=== PATIENT | female | born 1975 | race Caucasian/White ===

== ENCOUNTER 2016-05-28 14:43 | Emergency (ER) | payer MEDICARE ==
[~2016-05-28] VITALS: Ht 154.9 cm; Wt 54.4 kg
[~2016-05-28 14:43] MED LIST: BACTRIM DS 8001 TA1 PO; CYMBALTA60 M1 PO; FLEXERIL10 M1 PO; GABAPENTIN100 MG PO; HYDROCORT 0.5%30 G1 TP; LAMOTRIGINE100 M1 PO; METFORMIN500 MG PO; NAPROSYN500 M1 PO; PHENERGAN W/CO473 M1 PO; PROPRANOLOL HCL10 MG PO; PROTONIX 40MG T40 MG PO; TRAZODONE 50MG50 MG PO; Tramadol HCl50 MG PO; WELLBUTRIN 100100 M1 PO; ZANAFLEX2 M1 PO; ZOLOFT100 MG PO
[2016-05-28] MEDS ORDERED: KLONOPIN 0.5MG0.5 MG NG (14:50)
[2016-05-28] MEDS ORDERED: LISINOPRIL 20MG20 MG PO (14:50)
--- NOTE | 2016-05-28 15:46 | RADIOLOGY REPORT PS360 ---
WRIST-3 VIEWS-RT HISTORY: Pain following injury FALL ORDERING PHYSICIAN: Truman Berry MD PATIENT AGE: 40 years COMPARISON: None FINDINGS: No fracture or dislocation. No lytic or blastic change. There is normal mineralization.. The joint spaces are well-preserved. No significant degenerative/arthritic changes. No erosive changes evident.. There is an ulnar minus variant. IMPRESSION: No acute finding
--- NOTE | 2016-05-28 15:46 | RADIOLOGY REPORT PS360 ---
HUMERUS-RT HISTORY: Pain following injury pain, s/p fall ORDERING PHYSICIAN: Truman Berry MD PATIENT AGE: 40 years COMPARISON: None FINDINGS: No fracture or dislocation. No lytic or blastic change. There is normal mineralization. The joint spaces are well-preserved. No significant degenerative/arthritic changes. No erosive changes evident. IMPRESSION: Negative, no acute finding
--- NOTE | 2016-05-28 16:07 | RADIOLOGY REPORT PS360 ---
FOREARM-RT HISTORY: Pain following injury pain, s/p fall ORDERING PHYSICIAN: Truman Berry MD PATIENT AGE: 40 years COMPARISON: None FINDINGS: No obvious fracture, dislocation, lytic change or blastic change. Normal mineralization. Unremarkable soft tissues IMPRESSION: Negative forearm
--- NOTE | 2016-05-28 16:13 | RADIOLOGY REPORT PS360 ---
CT HEAD W/O CONTRAST HISTORY: Dizziness, headache, loss of consciousness after a fall and head injury HEAD INJURY W/LOC ORDERING PHYSICIAN: Truman Berry MD PATIENT AGE: 40 years COMPARISON: 12/02/2013 TECHNIQUE: Axial images obtained without contrast. Brain and bone windows reviewed. FINDINGS: No midline shift or mass effect is evident. There is generalized atrophy. 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 Small amount of subarachnoid hemorrhage is present in the right frontoparietal junction. No epidural or subdural hematoma evident. No calvarial fracture. Mild mucosal thickening involves the ethmoid and left sphenoid sinus with a small air-fluid level in the sphenoid sinus on the left. IMPRESSION: 1. Small area of acute subarachnoid hemorrhage in the right parietal region. 2. No midline shift or mass effect. 3. Atrophy. Critical result called to Dr. Laughlin on 05/28/2016 4:09 PM.
--- NOTE | 2016-05-28 16:26 | Emergency Room Report ---
History of Present Illness Time Seen by [id number] Presenting Problem in Triage Pt arrived:Walked Presenting Problem:PT REPORTS FELL WHILE GETTING IN THE SHOWER, C/O R WRIST PAIN R/T FALL AND SMALL LACERATION INSIDE R EAR. 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 N Clinical Suspician of Infection? N Mental Status: 1 - Regular (Normal Baseline) Sepsis Risk:Low Sepsis Risk Have you (or family members/close friends) recently traveled outside the [place]? N If Yes, where/when: Have you had exposure to infectious disease within the past month? N TB? Other? Specify: Source patient, RN notes reviewed, family, RN/MD, EMS notes reviewed Exam Limitations no limitations Comment This is a 40-year-old diabetic lady brought in by EMS after sustaining a head injury, while taking a shower just prior to arrival. According to the family she slipped on the wet floor, fell and hit her head and briefly passed out. Family denies any seizure like activity, any nausea, vomiting. Patient also complains with right ear pain where she has a small earlobe laceration. Family stated to that she appears slightly confused and more slow than usual. She is also complaining with RIGHT wrist, RIGHT forearm, RIGHT arm and RIGHT shoulder pain. She's been diagnosed with diabetes approximately 9 years ago. ALLERGIES Coded Allergies: tramadol (Intermediate, LIGHTHEADED 06/06/15) Home Medications Reported Medications Metformin HCL (Metformin) 500 MG PO TID Pantoprazole Sodium (Protonix 40MG TAB) 40 MG PO DAILY TIZANIDINE HCL (Zanaflex) 4 MG PO Q8P Bupropion Hcl (Wellbutrin 100MG) 100 MG PO BID TRAZODONE HCL (Trazodone HCl) 100 MG PO QHS Lamotrigine 100 MG PO BEDTIME LISINOPRIL (Lisinopril) 20 MG PO DAILY Clonazepam (Klonopin 0.5MG) 0.5 MG NG BID DULOXETINE HCL (Cymbalta) 60 MG PO DAILY History Medical History General CAD? No Angina: No MO: No Hypertension? Yes Hyperlipidemia? Yes CHF? No COPD? No Asthma? No Anemia? No Hernia? Yes Thyroid Problems? No Hypothyroidism? No CVA? No Seizures? No Diabetes? Yes Insulin Dependent: No Insulin Pump: No Home FSBS? Yes End Stage Renal Disease? No UTI? No Stones? No GB Disease: No Nephritic Syndrome? No Asplenia? No Hepatitis? No Sickle Cell Disease? No Arthritis? No Cataracts? No Glaucoma? No MRSA? No TB? No Cancer? Yes Site: OVARIAN More? 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 CAM[employer] MECH[employer]IC Hx LMP N/A Social History Smoking Hx Smoker: Never Smoker Tobacco: No Alcohol Alcohol: No Review of Systems All Other Systems Reviewed and Negative Musculoskeletal joint pain (RIGHT wrist, FA, arm) Skin lesions (laceration right ear) Psychiatric/Neurological headache Physical Exam Vital Signs Vital Signs Date Time Temp Pulse Resp B/P Pulse O2 O2 Flow FiO2 Ox Delivery Rate 05/28 1600 60 18 115/78 98 05/28 1444 98.9 66 18 110/60 100 General Appearance normal appearance, WD/WN, mild distress Eye Exam - bilateral eye normal exam, bilateral eye PERRL, bilateral eye EOMI Ear, Nose, Throat hearing grossly normal, normal ENT inspection Neck normal inspection, non-tender, supple, full range of motion Respiratory Status Yes: trachea midline, chest symmetrical, non tender chest. No: respiratory distress. Lung Sounds bilateral: normal breath sounds, lungs clear. Cardiovascular normal exam, regular rate/rhythm, no peripheral edema, no gallop, no JVD, no murmur, no rub, normal peripheral pulses Peripheral Pulses Pulses normal Yes Gastrointestinal normal bowel sounds, normal exam, non tender, soft, no organomegaly Extremities RIGHT shoulder, RIGHT humerus, RIGHT elbow, RIGHT forearm, RIGHT wrist and the palpation, with no soft tissue deformity, no bony deformity, no anatomical box tenderness. Neurologic alert, barrel cap setter II-XII nml as tested, normal exam, oriented x2, lethargic Glascow Coma Scale Glascow Coma Scale Response Value EYE response: 4 Spontaneously 4 MOTOR response: 6 OBEYS 6 VERBAL response: 4 Disoriented & Converses 4 Total 14 Mental status normal mood/affect Skin intact, normal color, warm/dry Medical Decision Making LABS/Meds/Orders Pt receiving controlled substance in ED? No Comment 04:19pm-was called by the radiologist, Dr. Chava Amaral, to be informed of patient 's RIGHT parietal subarachnoid hemorrhage found on the noncontrast CT scan brain without contrast 04:20pm-patient reexamined, she still complained with headache and nausea. 04:23pm-call initiated with [facility] regarding patient's transfer to [facility] trauma service. 04:38pm-cause reconnected with Ritika, transfer table operator, advised of patient's mechanism of injury, physical examination, radiology findings were all radiologist, as well as GCS score and patient's ED course. The school coordinator, Ritika, the patient on behalf of Dr. Charles. Patient will be transferred to [facility] via ambulance. Results/Orders Laboratory Tests 05/28/16 1628: POC Glucose 217 H Current Medication Orders Sig/Telly Start time Last Medication Dose Route Stop Time Status Admin Lidocaine HCl 0 .STK-MED ONE 05/28 1516 DC .ROUTE Tetanus/Diphtheria 0.5 ML ONCE ONE 05/28 1515 DC Toxoids Adsorbed IM 05/28 1516 Orders Procedure Date/time Status DIET-NOTHING BY MOUTH 05/28 D Active FINGERSTICK BLOOD SUGAR 05/[address] HEAD REQ 05/28 1502 Complete XRAY/CT/US XRAY/CT/US [address] interpretation by discussed w/radiologist (brunilda Amaral) CT Results no fracture seen Comment Small RIGHT parietal lobe subarachnoid hemorrhage per Dr. Amaral XRAY/CT/US 2 XRAY RIGHT wrist, RIGHT forearm, RIGHT humerus - negative Procedures Laceration/Wound Repair Laceration/Wound Repair Risks/benefits discussed with pt/guardian? Yes Tetanus status not up to date Wound Location ear (right) Wound Length (cm) 3 Wound's Depth, Shape sucutaneous tissue Wound Explored no FB identified Risk of retained FB explained to pt/guardian? Yes Irrigated w/ Saline (ccs) 20 Wound Prep Betadine, Saline Anesthesia 1% Lidocaine, Local Volume Anesthetic (ccs) 20 Wound Debrided none Wound Repaired With sutures (4.0 nylon) Suture Size/Type 4:0, Proline Layer Closure No Total Number Sutures 8 Sterile Dressing Applied Yes Departure Departure Time of Disposition 1624 Disposition DC/XFER from ER to [facility] Clinical Impression Primary Impression: Subarachnoid hemorrhage following injury Qualifiers: : : Qualified Code: S06.6X9A - Traumatic subarachnoid hemorrhage with loss of consciousness of unspecified duration, initial encounter Secondary Impressions: Fall Qualifiers: Encounter type: initial encounter Qualified Code: W19.XXXA - Unspecified fall, initial encounter Head injury due to trauma Qualifiers: Encounter type: initial encounter Qualified Code: S09.90XA - Unspecified injury of head, initial encounter Laceration of right ear region Condition STABLE ED Critical Care Critical Care Yes Time spent 30-74 min Vital system(s) involved: Central Nervous System I was present at bedside for Coordinating pt's care, Interpreting EKGs/Strips , During my initial exam, Reviewing lab results, Reviewing old records, Discussing pt condition, For re-examinations, Examining radiographs at [id number]
--- NOTE | 2016-05-28 16:26 | Emergency Room Report ---
History of Present Illness Time Seen by [id number] Presenting Problem in Triage Pt arrived:Walked Presenting Problem:PT REPORTS FELL WHILE GETTING IN THE SHOWER, C/O R WRIST PAIN R/T FALL AND SMALL LACERATION INSIDE R EAR. 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 N Clinical Suspician of Infection? N Mental Status: 1 - Regular (Normal Baseline) Sepsis Risk:Low Sepsis Risk Have you (or family members/close friends) recently traveled outside the [place]? N If Yes, where/when: Have you had exposure to infectious disease within the past month? N TB? Other? Specify: Source patient, RN notes reviewed, family, RN/MD, EMS notes reviewed Exam Limitations no limitations Comment This is a 40-year-old diabetic lady brought in by EMS after sustaining a head injury, while taking a shower just prior to arrival. According to the family she slipped on the wet floor, fell and hit her head and briefly passed out. Family denies any seizure like activity, any nausea, vomiting. Patient also complains with right ear pain where she has a small earlobe laceration. Family stated to that she appears slightly confused and more slow than usual. She is also complaining with RIGHT wrist, RIGHT forearm, RIGHT arm and RIGHT shoulder pain. She's been diagnosed with diabetes approximately 9 years ago. ALLERGIES Coded Allergies: tramadol (Intermediate, LIGHTHEADED 06/06/15) Home Medications Reported Medications Metformin HCL (Metformin) 500 MG PO TID Pantoprazole Sodium (Protonix 40MG TAB) 40 MG PO DAILY TIZANIDINE HCL (Zanaflex) 4 MG PO Q8P Bupropion Hcl (Wellbutrin 100MG) 100 MG PO BID TRAZODONE HCL (Trazodone HCl) 100 MG PO QHS Lamotrigine 100 MG PO BEDTIME LISINOPRIL (Lisinopril) 20 MG PO DAILY Clonazepam (Klonopin 0.5MG) 0.5 MG NG BID DULOXETINE HCL (Cymbalta) 60 MG PO DAILY History Medical History General CAD? No Angina: No ND: No Hypertension? Yes Hyperlipidemia? Yes CHF? No COPD? No Asthma? No Anemia? No Hernia? Yes Thyroid Problems? No Hypothyroidism? No CVA? No Seizures? No Diabetes? Yes Insulin Dependent: No Insulin Pump: No Home FSBS? Yes End Stage Renal Disease? No UTI? No Stones? No GB Disease: No Nephritic Syndrome? No Asplenia? No Hepatitis? No Sickle Cell Disease? No Arthritis? No Cataracts? No Glaucoma? No MRSA? No TB? No Cancer? Yes Site: OVARIAN More? 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 Social History Smoking Hx Smoker: Never Smoker Tobacco: No Alcohol Alcohol: No Review of Systems All Other Systems Reviewed and Negative Musculoskeletal joint pain (RIGHT wrist, FA, arm) Skin lesions (laceration right ear) Psychiatric/Neurological headache Physical Exam Vital Signs Vital Signs Date Time Temp Pulse Resp B/P Pulse O2 O2 Flow FiO2 Ox Delivery Rate 05/28 1600 60 18 115/78 98 05/28 1444 98.9 66 18 110/60 100 General Appearance normal appearance, WD/WN, mild distress Eye Exam - bilateral eye normal exam, bilateral eye PERRL, bilateral eye EOMI Ear, Nose, Throat hearing grossly normal, normal ENT inspection Neck normal inspection, non-tender, supple, full range of motion Respiratory Status Yes: trachea midline, chest symmetrical, non tender chest. No: respiratory distress. Lung Sounds bilateral: normal breath sounds, lungs clear. Cardiovascular normal exam, regular rate/rhythm, no peripheral edema, no gallop, no JVD, no murmur, no rub, normal peripheral pulses Peripheral Pulses Pulses normal Yes Gastrointestinal normal bowel sounds, normal exam, non tender, soft, no organomegaly Extremities RIGHT shoulder, RIGHT humerus, RIGHT elbow, RIGHT forearm, RIGHT wrist and the palpation, with no soft tissue deformity, no bony deformity, no anatomical box tenderness. Neurologic alert, smoke eater II-XII nml as tested, normal exam, oriented x2, lethargic Glascow Coma Scale Glascow Coma Scale Response Value EYE response: 4 Spontaneously 4 MOTOR response: 6 OBEYS 6 VERBAL response: 4 Disoriented & Converses 4 Total 14 Mental status normal mood/affect Skin intact, normal color, warm/dry Medical Decision Making LABS/Meds/Orders Pt receiving controlled substance in ED? No Comment 04:19pm-was called by the radiologist, Dr. Chava Amaral, to be informed of patient 's RIGHT parietal subarachnoid hemorrhage found on the noncontrast CT scan brain without contrast 04:20pm-patient reexamined, she still complained with headache and nausea. 04:23pm-call initiated with [facility] regarding patient's transfer to [facility] trauma service. 04:38pm-cause reconnected with Ritika, coordinator volunteer services, advised of patient's mechanism of injury, physical examination, radiology findings were all radiologist, as well as GCS score and patient's ED course. The conference center coordinator, Ritika, the patient on behalf of Dr. Charles. Patient will be transferred to [facility] via ambulance. Results/Orders Laboratory Tests 05/28/16 1628: POC Glucose 217 H Current Medication Orders Sig/Telly Start time Last Medication Dose Route Stop Time Status Admin Lidocaine HCl 0 .STK-MED ONE 05/28 1516 DC .ROUTE Tetanus/Diphtheria 0.5 ML ONCE ONE 05/28 1515 DC Toxoids Adsorbed IM 05/28 1516 Orders Procedure Date/time Status DIET-NOTHING BY MOUTH 05/28 D Active FINGERSTICK BLOOD SUGAR 05/[address] HEAD REQ 05/28 1502 Complete XRAY/CT/US XRAY/CT/US [address] interpretation by discussed w/radiologist (brunilda Amaral) CT Results no fracture seen Comment Small RIGHT parietal lobe subarachnoid hemorrhage per Dr. Amaral XRAY/CT/US 2 XRAY RIGHT wrist, RIGHT forearm, RIGHT humerus - negative Procedures Laceration/Wound Repair Laceration/Wound Repair Risks/benefits discussed with pt/guardian? Yes Tetanus status not up to date Wound Location ear (right) Wound Length (cm) 3 Wound's Depth, Shape sucutaneous tissue Wound Explored no FB identified Risk of retained FB explained to pt/guardian? Yes Irrigated w/ Saline (ccs) 20 Wound Prep Betadine, Saline Anesthesia 1% Lidocaine, Local Volume Anesthetic (ccs) 20 Wound Debrided none Wound Repaired With sutures (4.0 nylon) Suture Size/Type 4:0, Proline Layer Closure No Total Number Sutures 8 Sterile Dressing Applied Yes Departure Departure Time of Disposition 1624 Disposition DC/XFER from ER to [facility] Clinical Impression Primary Impression: Subarachnoid hemorrhage following injury Qualifiers: : : Qualified Code: S06.6X9A - Traumatic subarachnoid hemorrhage with loss of consciousness of unspecified duration, initial encounter Secondary Impressions: Fall Qualifiers: Encounter type: initial encounter Qualified Code: W19.XXXA - Unspecified fall, initial encounter Head injury due to trauma Qualifiers: Encounter type: initial encounter Qualified Code: S09.90XA - Unspecified injury of head, initial encounter Laceration of right ear region Condition STABLE ED Critical Care Critical Care Yes Time spent 30-74 min Vital system(s) involved: Central Nervous System I was present at bedside for Coordinating pt's care, Interpreting EKGs/Strips , During my initial exam, Reviewing lab results, Reviewing old records, Discussing pt condition, For re-examinations, Examining radiographs at 1103
[2016-05-28 16:53] VITALS: BP 115/54
== END 2016-05-28 16:54 | disposition short-term general hospital (02) ==
LOC: ER 14:43
PROC: 0HQ2XZZ Repair Right Ear Skin, External Approach (ICD-10-PCS; principal; 2016-05-28)
DX: S06.6X9A Traumatic subarachnoid hemorrhage with loss of consciousness of unspecified duration, initial encounter (principal); S01.311A Laceration without foreign body of right ear, initial encounter; W18.2XXA Fall in (into) shower or empty bathtub, initial encounter; Y93.E1 Activity, personal bathing and showering; Y92.002 Bathroom of unspecified non-institutional (private) residence as the place of occurrence of the external cause; E11.9 Type 2 diabetes mellitus without complications; I10 Essential (primary) hypertension; E78.5 Hyperlipidemia, unspecified
CPT/HCPCS: J2405